=== PATIENT | male | born 1950 | race Caucasian/White ===

== ENCOUNTER 2016-12-18 10:59 | Emergency (ER) | payer SELFPAY ==
[2016-12-18 11:09] VITALS: TEMP 98; BMI 21.3
--- NOTE | 2016-12-18 11:39 | PDOC ---
History of Present Illness - General History Source: Patient Exam Limitations: No Limitations - History of Present Illness Initial Comments: 12/18/16 11:41 The patient is a 66 year old male, Upper Sorbian speaking, with a significant past medical history of renal failure (dialysis T, R,Sat), presenting to the Emergency Department to check his kidney function. The patient reports that he is currently on dialysis, most recent treatment was today, but that he does not want to be on dialysis anymore. The patient admits that he feels perfect and that his urine is perfect. He has been on dialysis for about one year. He admits that he has not yet spoken to his urologist. He also states that his psychiatric social worker told him his insurance is going to stop covering his dialysis treatments. He is unsure of the names of his doctor or psychiatric social worker. The patient denies urinary urgency, or dysuria. Patient denies neck pain, back pain, and flank pain. Patient denies nausea, vomiting, and diarrhea. Patient denies fever, cough, and chills. [facility]: Dr. Lata Bernabe <Alicia Brown - Last Filed: 12/18/16 13:24> <Ann Rosario - Last Filed: 12/18/16 13:42> - General Chief Complaint: Revisit, Lab Variance Stated Complaint: LAB VARIANCE Past History <Alicia Brown - Last Filed: 12/18/16 13:24> - Past Medical History Cardiac Disorders: Yes Dialysis: Yes (TUES, THUR, SAT) HTN: Yes - Surgical History Abdominal Surgery: Yes (Hernia repair) - Psycho/Social/Smoking Cessation Hx Anxiety: No Suicidal Ideation: No Smoking History: Never smoked Have you smoked in the past 12 months: No Information on smoking cessation initiated: No Hx Alcohol Use: No Drug/Substance Use Hx: No Substance Use Type: None Hx Substance Use Treatment: No <Ann Rosario - Last Filed: 12/18/16 13:42> - Past Medical History Allergies/Adverse Reactions: Allergies Allergy/AdvReac Type Severity Reaction Status Date / Time No Known Allergies Allergy Verified 12/18/16 11:09 Home Medications: Ambulatory Orders Calcitriol [Calcitriol -] 0.5 mcg PO DAILY #30 capsule 05/25/16 Calcium Acetate [Phoslo -] 667 mg PO TIDCM #90 capsule 12/17/15 Calcium Carbonate - 650 mg PO BID #60 tablet 12/17/15 Ferrous Sulfate [Feosol] 325 mg PO BID #60 ud 12/17/15 Magnesium Oxide [Mag-Ox -] 400 mg PO DAILY #30 tablet 12/17/15 Menthol/Camphor [Sarna Anti-Itch -] 1 applic TP DAILY #1 btl 12/17/15 Vitamin B Comp W-C [Nephro-Aries -] 1 tablet PO DAILY #30 tablet 12/17/15 Gabapentin 200 mg PO BID 12/18/16 Review of Systems - Review of Systems Able to Perform ROS?: Yes Comments:: 12/18/16 11:42 CONSTITUTIONAL: Absent: fever, chills, diaphoresis, generalized weakness, malaise, loss of appetite HEENT: Absent: rhinorrhea, nasal congestion, throat pain, throat swelling, difficulty swallowing, mouth swelling, ear pain, eye pain, visual Changes CARDIOVASCULAR: Absent: chest pain, syncope, palpitations, irregular heart rate, lightheadedness , peripheral edema RESPIRATORY: Absent: cough, shortness of breath, dyspnea with exertion, orthopnea, wheezing, stridor, hemoptysis GASTROINTESTINAL: Absent: abdominal pain, abdominal distension, nausea, vomiting, diarrhea, constipation, melena, hematochezia GENITOURINARY: Absent: dysuria, frequency, urgency, hesitancy, hematuria, flank pain, genital pain MUSCULOSKELETAL: Absent: myalgia, arthralgia, joint swelling SKIN: Absent: rash, itching, pallor HEMATOLOGIC/IMMUNOLOGIC: Absent: easy bleeding, easy bruising, lymphadenopathy, frequent infections ENDOCRINE: Absent: unexplained weight gain, unexplained weight loss, heat intolerance, cold intolerance NEUROLOGIC: Absent: headache, focal weakness or paresthesias, dizziness, unsteady gait, seizure, mental status changes, bladder or bowel incontinence PSYCHIATRIC: Absent: anxiety, depression, suicidal or homicidal ideation, hallucinations. <Alicia Brown - Last Filed: 12/18/16 13:24> *Physical Exam - Vital Signs Last Vital Signs Temp Pulse Resp BP Pulse Ox 98 F 74 18 132/65 99 12/18/16 11:00 12/18/16 11:00 12/18/16 11:00 12/18/16 11:00 12/18/16 11:00 - Physical Exam Comments: 12/18/16 11:42 GENERAL: Well developed, well nourished. Awake and alert. In no acute distress. HEENT: Normocephalic, atraumatic. PERRLA, EOMI. No conjunctival pallor. Sclera are non- icteric. Moist mucous membranes. Oropharynx is clear. NECK: Supple. Full ROM. No JVD. Carotid pulses 2+ and symmetric, without bruits. No thyromegaly. No lymphadenopathy. CARDIOVASCULAR: Regular rate and rhythm. No murmurs, rubs, or gallops. Distal pulses are 2+ and symmetric. PULMONARY: No evidence of respiratory distress. Lungs clear to auscultation bilaterally. No wheezing, rales or rhonchi. ABDOMINAL: Soft. Non-tender. Non-distended. No rebound or guarding. No organomegaly. Normoactive bowel sounds. MUSCULOSKELETAL Normal range of motion at all joints. No bony deformities or tenderness. No CVA tenderness. EXTREMITIES: Left upper extremity fistula, dressing intact. No cyanosis. No clubbing. No edema. No calf tenderness. SKIN: Warm and dry. Normal capillary refill. No rashes. No jaundice. NEUROLOGICAL: Alert, awake, appropriate. Cranial nerves 2-12 intact. No deficits to light touch and temperature in face, upper extremities and lower extremities. No motor deficits in the in face, upper extremities and lower extremities. Normoreflexic in the upper and lower extremities. Normal speech. Toes are downgoing bilaterally. PSYCHIATRIC: Cooperative. Good eye contact. Appropriate mood and affect. <Alicia Brown - Last Filed: 12/18/16 13:24> - Vital Signs Last Vital Signs Temp Pulse Resp BP Pulse Ox 98 F 74 18 132/65 99 12/18/16 11:00 12/18/16 11:00 12/18/16 11:00 12/18/16 11:00 12/18/16 11:00 <Ann Rosario - Last Filed: 12/18/16 13:42> Heart Score/ECG Review #1 ECG reviewed & interpreted by me at: 12:20 (Normal sinus rhythm, left axis deviation, septal infarct age undetermined.) <Alicia Brown - Last Filed: 12/18/16 13:24> ED Treatment Course - LABORATORY CBC & Chemistry Diagram: 12/18/16 11:22 12/18/16 11:22 <Alicia Brown - Last Filed: 12/18/16 13:24> - LABORATORY CBC & Chemistry Diagram: 12/18/16 11:22 12/18/16 11:22 <Ann Rosario - Last Filed: 12/18/16 13:42> Medical Decision Making - Medical Decision Making 12/18/16 13:15 The patient's Dialysis center was called at and reported that the patient's Manual Arts Teacher is Dr. Lata Brooks. Dr. Lentz was overhead paged at 1:14. 12/18/16 13:24 Dr. Kole Lentz returned call at 1:24. He will come down to the ER to see the patient. <Alicia Brown - Last Filed: 12/18/16 13:24> - Medical Decision Making 12/18/16 11:37 66 yo male wtih h/o ESRD on dialysis t/r/sat, last dialysis today. pt here today because he has concerns he does not want to be on dialysis any more. stats he is urinating perfectly, feels great. he is also concerned because his psychiatric social worker told him his dialysis will no longer be covered. no f/c no cp no sob. requesting " xray of his kidneys" . he feels he is cured. 12/18/16 13:23 pt labs unremarkable. d/w dr Sandoval who works with pt impregnator and drier dr. brooks. will speak to pt to clarify insurance concerns and need for dialysis. discharge home. <Ann Rosario - Last Filed: 12/18/16 13:42> *DC/Admit/Observation/Transfer - Attestations Scribe Attestion: 12/18/16 11:42 Documentation prepared by Alicia Brown, acting as medical office clerk for Ann Rosario MD. <Alicia Brown - Last Filed: 12/18/16 13:24> <Ann Rosario - Last Filed: 12/18/16 13:42> Diagnosis at time of Disposition: Renal failure - Discharge Dispostion Disposition: HOME Condition at time of disposition: Improved - Referrals Referrals: Lata Bernabe MD [Staff Physician] - - Patient Instructions Printed Discharge Instructions: Hemodialysis Additional Instructions: you should continue with dialysis as you have been. return for any problems or concerns.
[2016-12-18 11:40] LABS: BASOPHIL 0.4 % (0-2.0); EOSINOPHIL 5.4 % (0-4.5); MCH 32.4 pg (25.7-33.7); MCHC 33.5 g/dl (32.0-35.9); MEAN CELL VOLUME 96.8 fl (80-96); MEAN PLT VOLUME 7.3 fl (7.5-11.1); NEUTROPHILS 69.8 % (42.8-82.8); PLATELET COUNT 185 K/MM3 (134-434); RDW 13.9 % (11.9-15.9); WHITE BLOOD COUNT 5.4 K/mm3 (4.0-10.0)
[2016-12-18 11:48] LABS: URINE APPEARANCE CLEAR; URINE BILIRUBIN NEGATIVE (NEGATIVE); URINE BLOOD NEGATIVE (NEGATIVE); URINE COLOR YELLOW; URINE GLUCOSE (UA) NEGATIVE (NEGATIVE); URINE KETONE NEGATIVE (NEGATIVE); URINE LEUK ESTERASE NEGATIVE (NEGATIVE); URINE NITRITE NEGATIVE (NEGATIVE); URINE UROBILINOGEN NEGATIVE E.U./dl (0.2-1.0)
[2016-12-18 11:51] LABS: URINE PROTEIN 2+ (NEGATIVE)
[2016-12-18 11:52] LABS: URINE RBC 1 /hpf (0-3); URINE WBC 1 /hpf (3-5)
[2016-12-18 12:08] LABS: ALBUMIN 4.1 g/dl (3.4-5.0); BILIRUBIN,TOTAL 0.4 mg/dL (0.2-1.0); CALCIUM 8.8 mg/dL (8.5-10.1); CREATININE 2.9 mg/dL (0.7-1.3); TOT PROT 8.3 g/dl (6.4-8.2)
[2016-12-18 14:08] VITALS: BP 162/75; PULSE 68
--- NOTE | 2016-12-20 10:07 | EKG ---
Test Reason : Blood Pressure : / mmHG Vent. Rate : 070 BPM Atrial Rate : 070 BPM P-R Int : 156 ms QRS Dur : 118 ms QT Int : 416 ms P-R-T Axes : 051 -67 064 degrees QTc Int : 449 ms NORMAL SINUS RHYTHM LEFT AXIS DEVIATION INCOMPLETE RIGHT BUNDLE BRANCH BLOCK SEPTAL INFARCT , AGE UNDETERMINED ABNORMAL ECG WHEN COMPARED WITH ECG OF 24-OCT-2015 16:01, SEPTAL INFARCT IS NOW PRESENT Confirmed by JACQUELYN BRICENO, STEFANIA ([id number]) on 12/20/2016 10:06:51 AM Referred By: Confirmed By:STEFANIA VALLADARES MD
== END 2016-12-18 14:08 | disposition home or self-care (01) ==
LOC: JER 10:59
DX: I12.0 Hypertensive chronic kidney disease with stage 5 chronic kidney disease or end stage renal disease (principal); N18.6 End stage renal disease; N17.8 Other acute kidney failure; Z99.2 Dependence on renal dialysis
CPT/HCPCS: 36415; 80053; 81003; 81015; 85025; 93005; 93010; 99285-25